=== PATIENT | male | born 1980 | race Native Hawaiian/Other Pacific Islander ===

== ENCOUNTER 2021-02-28 13:56 | Outpatient (CLI) | payer OTHER ==
[~2021-02-28] VITALS: Ht 185.4 cm; Wt 117.9 kg
== END 2021-02-28 19:06 | disposition home or self-care (01) ==
LOC: INF 13:56
PROVIDERS: ATTEND Internal Medicine
DX: Z23 Encounter for immunization (principal); U07.1 COVID-19
CPT/HCPCS: 96365; Q0239; Q0245